=== PATIENT | female | born 1940 | race Caucasian/White ===

== ENCOUNTER 2017-11-24 08:56 | Emergency (ER) | payer OTHER ==
[~2017-11-24] VITALS: Ht 157.5 cm; Wt 70.8 kg
[~2017-11-24 08:56] MED LIST: ACTONEL150 MG; CRESTOR10 MG; IMODIUM A-D2 MG PO; PEPCID40 MG PO; PROTONIX20 MG PO; SYNTHROID50 MCG; ZOFRAN4 MG PO
== END 2017-11-24 10:50 | disposition home or self-care (01) ==
LOC: ER 08:56
DX: M54.5 Low back pain (principal)

== ENCOUNTER 2018-05-23 14:07 | Emergency (ER) | payer OTHER ==
[~2018-05-23] VITALS: Ht 157.5 cm; Wt 73.0 kg
== END 2018-05-23 16:10 | disposition home or self-care (01) ==
LOC: ER 14:07
DX: S20.212A Contusion of left front wall of thorax, initial encounter (principal); S20.211A Contusion of right front wall of thorax, initial encounter; M94.0 Chondrocostal junction syndrome [Tietze]; V49.9XXA Car occupant (driver) (passenger) injured in unspecified traffic accident, initial encounter; Y93.89 Activity, other specified; Y92.488 Other paved roadways as the place of occurrence of the external cause; Y99.8 Other external cause status

== ENCOUNTER 2020-07-12 18:03 | Emergency (ER) | payer OTHER ==
[~2020-07-12] VITALS: Ht 154.9 cm; Wt 73.0 kg
== END 2020-07-12 20:15 | disposition home or self-care (01) ==
LOC: ER 18:03
DX: M25.561 Pain in right knee (principal)

== ENCOUNTER 2021-03-19 06:49 | Emergency (ER) | payer OTHER ==
[~2021-03-19] VITALS: Ht 154.9 cm; Wt 73.0 kg
[2021-03-19] MEDS ORDERED: XOPENEX0.63 MG/3 IH (07:17)
[2021-03-19] MEDS ORDERED: SPIRIVA RESPIMAT4 G1 (07:18)
== END 2021-03-19 10:59 | disposition home or self-care (01) ==
LOC: ER 06:49
DX: J40 Bronchitis, not specified as acute or chronic (principal)

== ENCOUNTER 2021-09-29 19:56 | Inpatient (IN) | payer OTHER ==
[~2021-09-29] VITALS: Ht 154.9 cm; Wt 82.1 kg
[~2021-09-29 19:56] MED LIST changes: +SPIRIVA RESPIMAT4 G1; +XOPENEX0.63 MG/3 IH
[2021-09-29] MEDS ORDERED: LOSARTAN POTASS50 MG PO (20:30)
[2021-10-02] MEDS ORDERED: SYMBICORT 16010.2 GM (10:10)
[2021-10-02] MEDS ORDERED: AZELASTINE137 MCG/0. (10:10)
[2021-10-02] MEDS ORDERED: FENOFIBRATE48 MG (10:10)
[2021-10-02] MEDS ORDERED: SYSTANE ULTRA 010 ML (10:10)
[2021-10-02] MEDS ORDERED: LEVOCETIRIZINE D5 MG (10:11)
[2021-10-02] MEDS ORDERED: PANTOPRAZOLE SO40 MG (10:11)
[2021-10-02] MEDS ORDERED: MONTELUKAST SOD10 MG (10:11)
[2021-10-02] MEDS ORDERED: ALLERGY RELIEF180 MG (10:11)
[2021-10-02] MEDS ORDERED: FLONASE16 GM (10:11)
[2021-10-05] MEDS ORDERED: MONTELUKAST SOD10 MG PO (16:41)
[2021-10-05] MEDS ORDERED: Lipitor 10MG TABLET PO (16:41)
[2021-10-05] MEDS ORDERED: ELIQUIS2.5 MG PO (16:41)
[2021-10-05] MEDS ORDERED: INTEGRA F CAPS1 EACH PO (16:41)
[2021-10-05] MEDS ORDERED: VITAMIN C500 M1 PO (16:41)
[2021-10-05] MEDS ORDERED: Neurin-Sl Tablet Sl SL (16:41)
[2021-10-05] MEDS ORDERED: LOSARTAN POTASS50 MG PO (16:41)
[2021-10-05] MEDS ORDERED: LEVOTHYROXINE50 MCG PO (16:41)
[2021-10-05] MEDS ORDERED: B Complex CAPSULE PO (16:41)
== END 2021-10-05 21:09 | DRG 522 ==
LOC: ER 19:56 → SEC-K 09-30 10:41 → SURH 09-30 10:41
PROVIDERS: ADMIT Orthopaedic Surgery; ATTEND Orthopaedic Surgery
PROC: 3E0F7GC Introduction of Other Therapeutic Substance into Respiratory Tract, Via Natural or Artificial Opening (ICD-10-PCS; 2021-09-30)
PROC: 0MTM0ZZ Resection of Left Hip Bursa and Ligament, Open Approach (ICD-10-PCS; 2021-10-02)
PROC: 3E0F7SF Introduction of Other Gas into Respiratory Tract, Via Natural or Artificial Opening (ICD-10-PCS; 2021-10-02)
PROC: 0SRS0JZ Replacement of Left Hip Joint, Femoral Surface with Synthetic Substitute, Open Approach (ICD-10-PCS; principal; 2021-10-02 12:15)
DX: S72.032A Displaced midcervical fracture of left femur, initial encounter for closed fracture (principal); D62 Acute posthemorrhagic anemia; M16.12 Unilateral primary osteoarthritis, left hip; M80.052A Age-related osteoporosis with current pathological fracture, left femur, initial encounter for fracture; J44.9 Chronic obstructive pulmonary disease, unspecified; E03.9 Hypothyroidism, unspecified; I10 Essential (primary) hypertension; W18.09XA Striking against other object with subsequent fall, initial encounter; Z20.822 Contact with and (suspected) exposure to COVID-19

== ENCOUNTER 2022-12-15 20:11 | Emergency (ER) | payer OTHER ==
[~2022-12-15] VITALS: Ht 154.9 cm; Wt 72.6 kg
[~2022-12-15 20:11] MED LIST changes: +ALLERGY RELIEF180 MG; +AZELASTINE137 MCG/0.; +B Complex CAPSULE PO; +ELIQUIS2.5 MG PO; +FENOFIBRATE48 MG; +FLONASE16 GM; +INTEGRA F CAPS1 EACH PO; +LEVOCETIRIZINE D5 MG; +LEVOTHYROXINE50 MCG PO; +LOSARTAN POTASS50 MG PO; +Lipitor 10MG TABLET PO; +MONTELUKAST SOD10 MG; +MONTELUKAST SOD10 MG PO; +Neurin-Sl Tablet Sl SL; +PANTOPRAZOLE SO40 MG; +SYMBICORT 16010.2 GM; +SYSTANE ULTRA 010 ML; +VITAMIN C500 M1 PO
[2022-12-15] MEDS ORDERED: MOLNUPIRAVIR (200 MG PO (22:48)
== END 2022-12-15 23:41 | disposition home or self-care (01) ==
LOC: ER 20:11
DX: U07.1 COVID-19 (principal); Z88.0 Allergy status to penicillin; Z88.6 Allergy status to analgesic agent; Z88.8 Allergy status to other drugs, medicaments and biological substances; K21.9 Gastro-esophageal reflux disease without esophagitis; J44.9 Chronic obstructive pulmonary disease, unspecified

== ENCOUNTER 2022-12-24 09:16 | Emergency (ER) | payer OTHER ==
[~2022-12-24] VITALS: Ht 154.9 cm; Wt 72.1 kg
[~2022-12-24 09:16] MED LIST changes: +MOLNUPIRAVIR (200 MG PO
== END 2022-12-24 15:03 | disposition home or self-care (01) ==
LOC: ER 09:16
DX: K52.9 Noninfective gastroenteritis and colitis, unspecified (principal); Z88.6 Allergy status to analgesic agent; Z88.0 Allergy status to penicillin; Z91.041 Radiographic dye allergy status; E03.9 Hypothyroidism, unspecified; I10 Essential (primary) hypertension; K21.9 Gastro-esophageal reflux disease without esophagitis

== ENCOUNTER 2023-07-09 10:50 | Emergency (ER) | payer OTHER ==
[~2023-07-09] VITALS: Ht 157.5 cm; Wt 77.1 kg
== END 2023-07-09 14:22 | disposition home or self-care (01) ==
LOC: ER 10:51
DX: M54.31 Sciatica, right side (principal); M70.61 Trochanteric bursitis, right hip; I10 Essential (primary) hypertension; Z88.6 Allergy status to analgesic agent; Z88.0 Allergy status to penicillin; Z88.8 Allergy status to other drugs, medicaments and biological substances
CPT/HCPCS: 72100; 96372; 99284; J2360; J3301

== ENCOUNTER 2024-03-13 09:48 | Emergency (ER) | payer OTHER ==
[~2024-03-13] VITALS: Ht 154.9 cm; Wt 73.0 kg
[2024-03-13] MEDS ORDERED: FAMOtidine 10 MG/ML (4ML VIAL) IV STA (10:37)
[2024-03-13] MEDS ORDERED: METOCLOPRAMIDE HCL 10 MG in DEXTROSE 5 % IN WATER 50 ML IV ONE (10:45)
[2024-03-13] MEDS ORDERED: ONDANSETRON HCL 2 MG/ML VIAL IV ONE (10:45)
[2024-03-13] MEDS ORDERED: ONDANSETRON HCL 2 MG/ML VIAL ONE (10:48)
[2024-03-13] MEDS ORDERED: FAMOTIDINE/PF 20 MG/2 ML VIAL ONE (10:48)
[2024-03-13] MEDS ORDERED: METOCLOPRAMIDE HCL 5 MG/ML VIAL ONE (10:48)
[2024-03-13 11:43] LABS: HEMOGLOBIN 14.7 g/dL (12.0-15.00); MEAN CELL VOLUME 90.2 fL (80.00-100.00); MEAN CORPUSCULAR HEMOGLOBIN 29.4 pg (27.00-32.0); MEAN CORPUSCULAR HGB CONC 32.6 g/dl (32.0-36.0); PLATELET COUNT 203 K/uL (150-450); RED BLOOD COUNT 4.99 M/uL (4.00-6.00); RED CELL DISTRIBUTION WIDTH 13.5 % (11.5-14.5)
[2024-03-13 12:27] LABS: ALBUMIN 3.5 gm/dL (3.4-5.0); BILIRUBIN TOTAL 2.03 mg/dL (0.3-1.2); BILIRUBIN,CONJUGATED 0.26 mg/dL (0.0-0.2); BILIRUBIN,UNCONJUGATED 1.77 mg/dL (0.0-0.6); CALCIUM 9.2 mg/dL (8.5-10.1); GFR 52.82; POTASSIUM 4.3 mEq/L (3.5-5.1); TOTAL PROTEIN 7.5 gm/dL (6.4-8.2)
[2024-03-13] MEDS ORDERED: DICYCLOMINE HCL 20 MG TABLET PO STA (13:41)
[2024-03-13] MEDS ORDERED: DICYCLOMINE HCL 10 MG CAPSULE PO ONE (14:05)
[2024-03-13 14:58] LABS: URINE APPEARANCE Clear; URINE BILIRRUBIN Negative (NEGATIVE); URINE BLOOD Negative; URINE COLOR Yellow; URINE GLUCOSE Negative (NEGATIVE); URINE KETONE 15 (NEGATIVE); URINE LEUKOCYTE Negative; URINE NITRATE Negative; URINE PROTEIN Negative (NEGATIVE); URINE UROBILINOGEN 0.2 E.U./dl
[2024-03-13 15:02] LABS: URINE BACTERIA 104.5 uL (0.0-1933); URINE EPITHELIAL CELLS 7.2 uL (0.0-38.8); URINE RBC 4.2 uL (0.0-20.8); URINE WBC 16.8 uL (0.0-23.2)
[2024-03-13 15:35] LABS: URINE CAST 0.15 uL (0.0-1.40)
== END 2024-03-13 17:34 | disposition home or self-care (01) ==
LOC: ER 09:49
PROVIDERS: General Practice
DX: K52.9 Noninfective gastroenteritis and colitis, unspecified (principal); Z20.822 Contact with and (suspected) exposure to COVID-19; I10 Essential (primary) hypertension; E03.8 Other specified hypothyroidism; Z88.0 Allergy status to penicillin; Z88.6 Allergy status to analgesic agent; Z91.041 Radiographic dye allergy status
CPT/HCPCS: 36415; 74240; 96365; 99283; J2405; J2765; J3490